=== PATIENT | female | born 1960 ===

== ENCOUNTER 2017-05-13 08:20 | Day surgery (SDC) | payer MEDICAID ==
[2016-07-28 10:21] VITALS: BMI 24.7
--- NOTE | 2017-05-13 10:07 | CP.SDSHP ---
Same Day Surgery H & P - History Proposed Procedure: US guided biopsy of left neck mass. Pre-Op Diagnosis: Left neck mass - Allergies Allergies: Allergies No Known Allergies Allergy (Verified 06/05/16 11:03) - Physical Exam Vital Signs: Vital Signs 05/13/17 08:38 Temperature 99.2 F Pulse Rate 82 Respiratory 20 Rate Blood Pressure 143/83 O2 Sat by Pulse 98 Oximetry Mental Status: Alert & Oriented x3 Neuro: WNL Heart: WNL Lungs: WNL - {Optional Preform as Required} ENT: Other (large left neck mass.) - Impression Impression: Pt with left submandibular mass refered for biopsy. Plan US guided biopsy. Informed consent obtained and risk of procedures, including risk of bleed and infection, were explained to the patient. Pt. Evaluated Today:Candidate for Anesthesia & Procedure: No (ASA 2 Malamapati 3) - Date & Time Date: 05/13/17 Time: 10:00 Short Stay Discharge - Short Stay Discharge Admitting Diagnosis/Reason for Visit: NECK MASS
--- NOTE | 2017-05-13 10:33 | PCM.SURG1 ---
Surgeon's Initial Post Op Note - Surgeon's Notes Surgeon: Torrey Branch MD Squaring Shear Operator: None Type of Anesthesia: Local Pre-Operative Diagnosis: Left neck mass Operative Findings: Complex left neck mass extending from the supraclavicular region to the parotid space. Post-Operative Diagnosis: Left neck mass Operation Performed: US guided core biopsy Specimen/Specimens Removed: 18 g core x 7 Estimated Blood Loss: EBL {In ML}: 0 Blood Products Given: N/A Drains Used: No Drains Post-Op Condition: Fair Date of Surgery/Procedure: 05/13/17 Time of Surgery/Procedure: 10:30
[2017-05-13 12:07] VITALS: BP 119/65; PULSE 69; RESP 18; TEMP 98.8; O2SAT 97
== END 2017-05-13 11:08 | disposition home or self-care (01) ==
LOC: C.SPRAD 08:20
PROVIDERS: ATTEND Radiology Vascular & Interventional Radiology
DX: R22.1 Localized swelling, mass and lump, neck (principal)

== ENCOUNTER 2017-05-18 09:01 | Day surgery (SDC) | payer MEDICAID ==
[2016-07-28 10:21] VITALS: BMI 24.7
[~2017-05-18 09:01] MED LIST: Acetaminophen-Codeine 300/30 mg Tab PO PRN; Dextrose 5%/0.45% NS 1,000 ML IV SCH
[2017-05-18] MEDS ORDERED: Oxymetazoline 0.05% Nasal Spray (30 ml) NS ONE (12:13)
[2017-05-18] MEDS ORDERED: Lidocaine 2% w Epi 1:100,000 Inj IJ ONE (12:13)
[2017-05-18] MEDS ORDERED: ceFAZolin 1 gm FROZEN Premix 1 GM/50 ML ML IVPB ONE (12:13)
[2017-05-18] MEDS ORDERED: Lactated Ringer's 1,000 ML IV ONE (12:15)
[2017-05-18] MEDS ORDERED: Propofol 10 mg/ml Inj (20 ML) ONE (12:26)
[2017-05-18] MEDS ORDERED: Midazolam 2 MG/2 ML VIAL ONE (12:29)
[2017-05-18] MEDS ORDERED: Racepinephrine 2.25% Inhal Soln 0.5 ML UD NEB PRN (13:17)
[2017-05-18] MEDS ORDERED: HYDROmorphone 0.5 mg/0.5 ml ISec IVP PRN (13:25)
[2017-05-18] MEDS ORDERED: Lactated Ringer's 500 ML IV ONE (14:30)
[2017-05-18 14:35] VITALS: O2SAT 97
[2017-05-18 16:02] VITALS: BP 117/64; PULSE 79; RESP 15; TEMP 98.9
--- NOTE | 2017-05-19 03:52 | OP ---
PROCEDURE DATE: 05/18/2017 PREOPERATIVE DIAGNOSIS: Enlarged tonsil, nasopharyngeal mass. POSTOPERATIVE DIAGNOSIS: Enlarged tonsil, nasopharyngeal mass. PROCEDURE: Left tonsillectomy, endoscopic nasopharyngeal mass biopsy. SIGNIFICANT FINDINGS: Large left tonsil and nasopharyngeal mass. SURGEON: Shan Mcghee MD DESCRIPTION OF PROCEDURE: The patient was brought into the room, placed in a supine position. Anesthesia was initiated through an ET tube. The patient was draped in the usual manner. A mouth gag was placed in the oral cavity, opened and suspended on the [place] construction inspector the usual manner. The left tonsil was grabbed and hold medially. An incision was made using a plasma in the left tonsillar pillar. Dissections were done between tonsil and tonsillar fossa using plasma until the tonsil was removed. Bleeding was controlled using a plasma knife. The tonsillar beds were rubbed vigorously with a plasma knife wand. No bleeding was noted. Mouth gag was let down for 30 seconds and put back up. No bleeding was noted. The mouth gag was taken down and removed. Adrenaline soaked pledgets were inserted into the nasal cavity and remained there for 5 minutes. A 30-degree scope was inserted roseann the nasal cavity and passed through the nasopharynx, the nasopharyngeal mass was noted. Multiple biopsies were taken using forceps. Bleeding was controlled using adrenaline-soaked pledgets. The 30-degree scope was removed. The patient was taken off anesthesia and taken to recovery room in stable manner. Shan Mcghee MD MTDD
== END 2017-05-18 16:11 | disposition home or self-care (01) ==
LOC: C.SDS 09:01
PROVIDERS: ATTEND Otolaryngology
DX: R22.1 Localized swelling, mass and lump, neck (principal); C11.0 Malignant neoplasm of superior wall of nasopharynx; J35.1 Hypertrophy of tonsils
CPT/HCPCS: 31237; 42826; 88304; 88305; J0690; J1170; J2250; J2704; J3010; J7030; J7040; J7120